=== PATIENT | male | born 1990 | race Caucasian/White ===

== ENCOUNTER 2018-02-25 08:55 | Emergency (ER) | payer OTHER ==
[2018-02-25 09:11] VITALS: BP 123/88; PULSE 83; O2SAT 100
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
== END 2018-02-25 10:00 | disposition home or self-care (01) ==
LOC: ED 08:55
DX: M54.5 Low back pain (principal)
CPT/HCPCS: 99283

== ENCOUNTER 2023-01-22 20:07 | Emergency (ER) | payer SELFPAY ==
[2023-01-22 20:25] VITALS: TEMP 98.9
[2023-01-22] MEDS ORDERED: TORAdol 30 mg Injection IV ONE (20:47)
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
[2023-01-22] MEDS ORDERED: Sodium Chloride 0.9% 1000 ML 1,000 ML IV SCH ×2 (21:00)
[2023-01-22 21:14] LABS: Absolute Neutrophil Ct (ANC) 5.63 x10^3/uL (1.4-6.9); BASOPHIL % 0.8 % (0.0-0.4); Basophil (Absolute #) 0.08 x10^3/uL (0-0.4); Eosinophil % 6.1 % (0.00-5.0); Eosinophil (Absolute #) 0.58 x10^3/uL (0-0.5); Hematocrit 46.1 % (42-50); Hemoglobin 15.9 g/dL (12.5-18.0); IMMATURE GRAN # 0.02 x10^3u/L (0.00-0.03); IMMATURE GRAN % 0.2 % (0.00-0.4); Lymphocyte (Absolute #) 2.74 x10^3/uL (1.0-4.6); Lymphocytes % 28.8 % (24.0-44.0); Mean Cell Volume 85.5 fL (78-100); Mean Corpuscular Hemoglobin 29.5 pg (26-32); Mean Corpuscular Hgb Concent. 34.5 g/dL (32-36); Mean Platelet Volume 9.1 fL (7.5-11.0); Monocyte (Absolute #) 0.48 x10^3/uL (0.0-1.3); Neutrophil % 59.1 % (36.0-66.0); Platelet Count 197 x10^3/uL (150-450); Red Blood Count 5.39 x10^6/uL (4.1-5.6); Red Cell Distribution Width 11.6 % (11.5-14.0); White Blood Count 9.5 x10^3/uL (4.0-10.5)
[2023-01-22 21:27] VITALS: O2SAT 97
[2023-01-22] MEDS ORDERED: TORAdol 30 mg Injection ONE (21:28)
[2023-01-22] MEDS ORDERED: Sodium Chloride 0.9% 1000 ML 1,000 ML ONE (21:28)
[2023-01-22 21:29] LABS: ALBUMIN 4.9 g/dL (3.5-5.0); ANION GAP 17.2 MEQ/L (5-15); BILIRUBIN,TOTAL 0.5 mg/dL (0.2-1.3); Calcium 9.9 mg/dL (8.4-10.2); Creatinine 1 0.7 mg/dL (0.66-1.25); EST GLOMERULAR FILTRATION RATE 127.1 ML/MIN; Potassium 4.4 mmol/L (3.5-5.1); Total Protein 8.7 g/dL (6.3-8.2)
[2023-01-22 22:29] LABS: Appearance Turbid (Clear); Bacteria None Seen /HPF (None Seen); Bilirubin Negative (Negative); Blood Negative (Negative); Epithelial Cells None Seen /HPF (None Seen); Glucose, Urine Negative (Negative); Hyaline Casts NONE SEEN /LPF (0-2); Ketones Trace (Negative); Leukocyte Esterase Negative (Negative); Nitrite Negative (Negative); Ph 7.5 (4.6-8.0); Protein,Urine Dip Trace (Negative); RBC 0-2 /HPF (0-5); WBC 0-2 /HPF (0-5)
[2023-01-22 22:34] LABS: ADD URINE CULTURE? NO (NO)
[2023-01-22 23:12] VITALS: BP 138/78; PULSE 76; RESP 18
--- NOTE | 2023-01-23 08:47 | XRAY ---
Indication: Chest pain. Comparison: None PA/lateral chest demonstrates normal heart and lungs. Bony thorax intact with mild scoliosis.
--- NOTE | 2023-01-23 08:49 | XRAY ---
Indication: Headache. Multiple contiguous axial images obtained through the head without contrast. Comparison: None Normal appearing brain parenchyma, ventricles, and bony calvarium. Visualized paranasal sinuses and mastoid air cells are clear. Impression: Normal CT head without contrast exam.
--- NOTE | 2023-01-23 08:49 | XRAY ---
Indication: Pain. Multiple contiguous axial images obtained through the cervical spine. Sagittal and coronal reformatted images obtained. Comparison: None Axial images demonstrate mild broad-based disc osteophyte at C5-C6 level. No acute fracture, suspicious bony lesions, or spinal canal stenosis, facets are symmetric. Sagittal and coronal reformatted images demonstrates mild lordotic straightening, positional versus paraspinal spasm. Vertebral body heights/disc spaces maintained. No acute compression fracture, subluxation, or jumped facet. Normal appearing craniocervical junction. Visualized noncontrasted soft tissues including lung apices are unremarkable. Impression: Mild C5-C6 degenerative disc disease. Remaining CT cervical spine is negative.
--- NOTE | 2023-01-23 08:51 | XRAY ---
Indication: Pain, nausea, and diarrhea. Multiple contiguous axial images obtained through the abdomen and pelvis without contrast. Comparison: None Lung bases demonstrate dependent atelectasis. No infiltrate or effusion. Heart not enlarged. Stomach is distended with food/fluid. Noncontrasted stomach and bowel loops appear nonobstructed with normal appendix. No free fluid/air. Remaining liver, gallbladder, pancreas, spleen, adrenal glands, kidneys, ureters, bladder, and aorta are unremarkable for noncontrast exam. Osseous structures intact with a few incidental tiny multilevel lumbar Schmorl nodes and minimal levoscoliosis. No ventral or inguinal hernias. Impression:. Chronic bony findings. Remaining CT abdomen/pelvis without contrast exam is normal.
--- NOTE | 2023-01-23 08:54 | XRAY ---
Indication: Low back pain. Sagittal, coronal, and axial reformatted images lumbar spine obtained using raw data from same day CT abdomen/pelvis exam. Comparison: None Axial images negative for acute fracture, suspicious bony lesions, or spinal canal stenosis. Incidental tiny L1-L3 Schmorl nodes. Facets are symmetric. Sagittal and coronal reformatted images demonstrates minimal L5-S1 disc space narrowing and minimal scoliosis. No acute fracture or subluxation. CT abdomen/pelvis report septally. Impression: Multilevel Schmorl nodes, minimal scoliosis, and minimal L5-S1 disc space narrowing. Remaining CT lumbar spine is negative.
== END 2023-01-22 23:38 | disposition home or self-care (01) ==
LOC: ED 20:07
DX: R07.9 Chest pain, unspecified (principal); R51.9 Headache, unspecified; M54.2 Cervicalgia; M54.50 Low back pain, unspecified; M54.31 Sciatica, right side; R10.84 Generalized abdominal pain; R19.7 Diarrhea, unspecified; R11.2 Nausea with vomiting, unspecified; I10 Essential (primary) hypertension; Z28.310 Unvaccinated for COVID-19; Z72.0 Tobacco use
CPT/HCPCS: 36000; 36415; 70450; 71046; 72125; 74176; 76376; 80053; 81001; 82150; 83690; 84484; 85025; 93005; 96374; 99284; J1885